=== PATIENT | female | born 2000 | race Caucasian/White ===

== ENCOUNTER 2021-09-21 16:17 | Emergency (ER) | payer OTHER, MEDICAID, SELFPAY ==
[2021-09-21 16:21] VITALS: BP 111/70; PULSE 86; RESP 18; TEMP 36.4; O2SAT 100
== END 2021-09-21 18:28 | disposition left against medical advice (07) ==
PROVIDERS: Emergency Provider Emergency Medicine
CPT/HCPCS: 99281